=== PATIENT | male | born 1950 | race Caucasian/White ===

== ENCOUNTER 2020-09-12 13:01 | Emergency (ER) | payer MEDICARE, OTHER ==
--- OUTSIDE RECORDS SUMMARY | 2020-09-12 13:05 | XMS REPORT | Clinical Summary ---
:1950 Author Organization [facility] Address [address] [place] [address] Care Team Providers Name Role Phone Thomas Manrique MD Primary Care Provider Allergies Active Allergy Reactions Severity Noted Date Comments Iodine Shortness Of Breath High 08/27/2020 Penicillins Swelling 08/27/2020 And "passes out " Medications Medication Sig Dispensed Refills Start End Date Status Date levothyroxine Take 175 mcg 0 Act carmita (SYNTHROID) 175 mcg by mouth tablet daily. DULoxetine Take 60 mg by 0 Activ e (CYMBALTA) 60 MG mouth 2 (two) capsule times a day. Lactobac Take 1 0 Active no.41/Bifidobact capsule by no.7 (PROBIOTIC-10 mouth 2 (two) ORAL) times a day. vit A/vit C/vit Take by mouth 0 Active E/zinc/copper 2 (two) times (PRESERVISION AREDS a day. ORAL) gabapentin Take 2 60 capsule 0 09/19/20 Active (NEURONTIN) 100 mg capsules (200 0 20 capsule mg total) by mouth 3 (three) times a day for 10 days. psyllium husk Take 1 packet 30 packet 0 10/09/19 Ac tive (METAMUCIL) 6 gram by mouth 0 21 packet daily as needed (WATERY Ostomy output) for up to 30 days. Only take 1/4 - 1/2 of the glass sulfamethoxazole-tri Take 1 tablet 14 tablet 0 09/16 Active methoprim (BACTRIM by mouth 0 20 DS) 800-160 mg per every 12 tablet (twelve) hours for 7 days. atorvastatin Take 20 mg by 0 08/27/20 Dis continued (LIPITOR) 20 mg mouth daily. 20 tablet Default OP ins carbidopa-levodopa Take 1 tablet 0 0 Discontinued (SINEMET) 10-100 mg by mouth 3 20 per tablet (three) times a day. pramipexole di-HCl Take by mouth 0 0 Discontinued (MIRAPEX ORAL) 3 (three) 20 times a day. HYDROcodone-acetamin Take 1 tablet 0 08/27 Discontinued ophen (NORCO) 10-325 by mouth 20 mg per every 6 (six) tabletIndications: hours as acute pain needed for moderate pain .acute pain. bisoprolol (ZEBETA) Take 5 mg by 0 0 Discontinued 5 MG tablet mouth 2 (two) 20 times a day. gabapentin Take 300 mg 0 08/27/20 Discont inued (NEURONTIN) 300 mg by mouth 20 capsule nightly. diphenhydrAMINE Take 25 mg by 0 08/27/20 Discontinued (BENADRYL) 25 mg mouth nightly 20 tablet as needed for sleep. oxymetazoline 2 sprays into 0 08/27/20 Di scontinued (AFRIN) 0.05 % nasal each nostril 20 spray 2 (two) times a day. traZODone (DESYREL) Take 50 mg by 0 Discontinued 50 MG tablet mouth 20 nightly. UNABLE TO FIND Med Name: CBD 0 08/27/20 D iscontinued OIL 20 atorvastatin calcium Take 20 mg by 0 09/09 Discontinued (ATORVASTATIN ORAL) mouth every 20 (Stop Taking at evening. Discharge) Active Problems Problem Noted Date Incisional hernia without obstruction or gangrene 12/2019 Encounters Date Type Specialty Care Team Description 09/11/2020 Patient Outreach Quality Amalia Randle RN 09/10/2020 Travel 08/30/2020 Anesthesia Event General Surgery Trinity Meza MD Everitt, Amanda W., COMPRESSOR STATION CHIEF ENGINEER 08/30/2020 Surgery General Surgery Andi Gurrola OPEN RODNEYI JANENE Laura MD HERNIA REPAIR W ITH MESH, PARASTOMA L HERNIA REPAIR W ITH RELOCATION OF [facility] 08/30/2020 - Hospital Encounter General Surgery Andi Gurrola Inc isional hernia 09/09/2020 MD [place] without obstruc tion or gangrene 08/27/2020 Pre-Admission Pre-Admission Andi Gurrola Preop exam ination Testing Testing MD [place] (Primary Dx) 08/27/2020 Travel 08/19/2020 Travel 08/05/2020 Orders Only Cardiology Chris Mcrae MD 07/09/2020 Office Visit General Surgery Andi Gurrola Incisiona l hernia, without obstruction or gangrene (Primary Dx); MD [place] Parastomal tana ia without obstruction or gangrene 07/08/2020 Travel after 09/12/2019 Surgical History Surgery Date Site/Laterality Comments TOTAL COLECTOMY 03/27/2015 - ex-lap, total co lectomy, 04/26/2015 end ileostomy fo r acute abdomen HAND TENDON SURGERY right 1985 VARICOSE VEIN SURGERY 1978 REPAIR, HERNIA, 08/30/2020 Abdomen/N/A Procedure: OPEN INCISIONAL OR VENTRAL INCISIONAL HERNIA REPAIR WITH MESH, SONIA TOMAL HERNIA REPAIR WI TH [facility]ATION OF [facility]; Surgeon: Andi Baltazar MD; Locatio n: [facility] OR; Servic e: General; Latera lity: N/A; Medical devices from this surgery are in t he Implants section . Medical History Medical History Date Comments Hypertension htn is part of histo ry, not currently having high blood pr essure. 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 Depression Hyperlipidemia Hypothyroidism Anesthesia nhap/nfhap Prediabetes PVD (peripheral vascular disease) (HCC) Perforation of colon (HCC) [address] (HCC) Arthritis Lumbar herniated disc Social History Tobacco Use Types Packs/Day Years Used Date Current Every Day Smoker Cigarettes 0.5 50 Smokeless Tobacco: Never Used Alcohol Use Drinks/Week oz/Week Comments Not Currently Alcohol Habits Answer Date Recorded How often do you have a drink containing alcohol? Monthly or less 08/27/2020 How many drinks containing alcohol do you have on a 1 or 2 08/27/2020 typical day when you are drinking? How often do you have six or more drinks on one Not asked occasion? Sex Assigned at Date Recorded Not on file Job Start Date Occupation Industry Not on file Not on file Not on file COVID-19 Exposure Response Date Recorded In the last month, have you been in contact with No / Unsure 09/10/2020 9:42 AM [employer] someone who was confirmed or suspected to have Coronavirus / COVID-19? Last Filed Vital Signs Vital Sign Reading Time Taken Comments Blood Pressure 126/56 09/09/2020 12:09 PM [employer] Pulse 75 09/09/2020 12:09 PM [employer] Temperature 37.4 C (99.3 F) 09/09/2020 12:09 PM [employer] Respiratory Rate 20 09/09/2020 12:09 PM [employer] Oxygen Saturation 96% 09/09/2020 12:09 PM [employer] Inhaled Oxygen Concentration - - Weight 111 kg (244 lb 11.4 oz) 08/30/2020 8:22 PM [employer] Height 185.4 cm (6' 1") 08/30/2020 8:22 PM [employer] Body Mass Index 32.29 08/30/2020 8:22 PM [employer] Plan of Treatment Health Maintenance Due Date Last Done Comments COVID-19 VACCINE (#1) 1968 COLONOSCOPY SCREENING 2002 SHINGLES VACCINES (#1) 2002 65+ PNEUMOCOCCAL VACCINE (1 of 1 - PPSV23) 2017 INFLUENZA VACCINE 04/27/2020 Implants Implanted Type Area [employer] Device Shelf Model / Identifier Expiration Serial / Date Lot [employer] Mltpl Clip Ligaclip Ligtn 20 Clips 33.7cm Lg Ti - Lo [id number] Surgical N/A: N/A ETHICON US ET 04/26/2025 [id number] / Implanted: Qty: 1 on 08/30/2020 at [facility] Implants; / Expanders; [id number] Extenders; Surgical Wires Patch Hrnia Oval 7.7x9.7in Xl Ventrio Sepra - [id number] Surgica l Anterior: [employer] 11/24/2020 [id number] / Implanted: Qty: 1 on 08/30/2020 by Andi Gurrola MD at [facility] Mesh or Abdomen, / Tissue Middle [id number] Barrier Quadrant/No Products n Specific Procedures Procedure Name Priority Date/Time Associated Diagnosis Comme nts ESTIMATED GFR Routine 09/09/2020 4:00 Results fo r this AM [employer] procedure are i n the results section. PHOSPHORUS LEVEL Routine 09/09/2020 4:00 Results for this AM [employer] procedure are i n the results section. MAGNESIUM LEVEL Routine 09/09/2020 4:00 Results for this AM [employer] procedure are i n the results section. BASIC METABOLIC PANEL Routine 09/09/2020 4:00 Re sults for this AM [employer] procedure are i n the results section. HC COMPLETE BLD COUNT Routine 09/09/2020 3:50 Re sults for this W/AUTO DIFF AM [employer] procedure are i n the results section. HC COMPLETE BLD COUNT Routine 09/08/2020 5:20 Re sults for this W/AUTO DIFF AM [employer] procedure are i n the results section. ESTIMATED GFR Routine 09/08/2020 4:00 Results fo r this AM [employer] procedure are i n the results section. PHOSPHORUS LEVEL Routine 09/08/2020 4:00 Results for this AM [employer] procedure are i n the results section. MAGNESIUM LEVEL Routine 09/08/2020 4:00 Results for this AM [employer] procedure are i n the results section. BASIC METABOLIC PANEL Routine 09/08/2020 4:00 Re sults for this AM [employer] procedure are i n the results section. XR ABDOMEN 1 VW STAT 09/07/2020 1:21 Results for this PORTABLE PM [employer] procedure are i n the results section. HC COMPLETE BLD COUNT Routine 09/07/2020 5:00 Re sults for this W/AUTO DIFF AM [employer] procedure are i n the results section. ESTIMATED GFR Routine 09/07/2020 4:00 Results fo r this AM [employer] procedure are i n the results section. PHOSPHORUS LEVEL Routine 09/07/2020 4:00 Results for this AM [employer] procedure are i n the results section. MAGNESIUM LEVEL Routine 09/07/2020 4:00 Results for this AM [employer] procedure are i n the results section. BASIC METABOLIC PANEL Routine 09/07/2020 4:00 Re sults for this AM [employer] procedure are i n the results section. XR ABDOMEN 1 VW STAT 09/06/2020 12:04 Results for this PORTABLE PM [employer] procedure are i n the results section. HC COMPLETE BLD COUNT Routine 09/06/2020 4:30 Re sults for this W/AUTO DIFF AM [employer] procedure are i n the results section. ESTIMATED GFR Routine 09/06/2020 4:00 Results fo r this AM [employer] procedure are i n the results section. PHOSPHORUS LEVEL Routine 09/06/2020 4:00 Results for this AM [employer] procedure are i n the results section. MAGNESIUM LEVEL Routine 09/06/2020 4:00 Results for this AM [employer] procedure are i n the results section. BASIC METABOLIC PANEL Routine 09/06/2020 4:00 Re sults for this AM [employer] procedure are i n the results section. HC COMPLETE BLD COUNT Routine 09/05/2020 4:40 Re sults for this W/AUTO DIFF AM [employer] procedure are i n the results section. ESTIMATED GFR Routine 09/05/2020 4:00 Results fo r this AM [employer] procedure are i n the results section. PHOSPHORUS LEVEL Routine 09/05/2020 4:00 Results for this AM [employer] procedure are i n the results section. MAGNESIUM LEVEL Routine 09/05/2020 4:00 Results for this AM [employer] procedure are i n the results section. BASIC METABOLIC PANEL Routine 09/05/2020 4:00 Re sults for this AM [employer] procedure are i n the results section. CONSULT TO OSTOMY Routine 09/04/2020 2:22 CARE NURSE PM [employer] HC COMPLETE BLD COUNT Routine 09/04/2020 5:45 Re sults for this W/AUTO DIFF AM [employer] procedure are i n the results section. ESTIMATED GFR Routine 09/04/2020 4:00 Results fo r this AM [employer] procedure are i n the results section. PHOSPHORUS LEVEL Routine 09/04/2020 4:00 Results for this AM [employer] procedure are i n the results section. MAGNESIUM LEVEL Routine 09/04/2020 4:00 Results for this AM [employer] procedure are i n the results section. BASIC METABOLIC PANEL Routine 09/04/2020 4:00 Re sults for this AM [employer] procedure are i n the results section. PHOSPHORUS LEVEL Routine 09/03/2020 4:00 Results for this PM [employer] procedure are i n the results section. MAGNESIUM LEVEL Routine 09/03/2020 4:00 Results for this PM [employer] procedure are i n the results section. POTASSIUM LEVEL Routine 09/03/2020 4:00 Results for this PM [employer] procedure are i n the results section. ESTIMATED GFR Routine 09/03/2020 4:00 Results fo r this AM [employer] procedure are i n the results section. PHOSPHORUS LEVEL Routine 09/03/2020 4:00 Results for this AM [employer] procedure are i n the results section. MAGNESIUM LEVEL Routine 09/03/2020 4:00 Results for this AM [employer] procedure are i n the results section. BASIC METABOLIC PANEL Routine 09/03/2020 4:00 Re sults for this AM [employer] procedure are i n the results section. HEPATIC FUNCTION Routine 09/03/2020 4:00 Results for this PANEL AM [employer] procedure are i n the results section. HC COMPLETE BLD COUNT Routine 09/03/2020 3:00 Re sults for this W/AUTO DIFF AM [employer] procedure are i n the results section. SMEAR REVIEW Routine 09/02/2020 4:25 Results for this AM [employer] procedure are i n the results section. HC COMPLETE BLD COUNT Routine 09/02/2020 4:25 Re sults for this W/AUTO DIFF AM [employer] procedure are i n the results section. ESTIMATED GFR Routine 09/02/2020 4:00 Results fo r this AM [employer] procedure are i n the results section. FOLATE LEVEL Routine 09/02/2020 4:00 Results for this AM [employer] procedure are i n the results section. VITAMIN B12 LEVEL Routine 09/02/2020 4:00 Result s for this AM [employer] procedure are i n the results section. THYROID STIMULATING Routine 09/02/2020 4:00 Resu lts for this HORMONE AM [employer] procedure are i n the results section. PHOSPHORUS LEVEL Routine 09/02/2020 4:00 Results for this AM [employer] procedure are i n the results section. MAGNESIUM LEVEL Routine 09/02/2020 4:00 Results for this AM [employer] procedure are i n the results section. BASIC METABOLIC PANEL Routine 09/02/2020 4:00 Re sults for this AM [employer] procedure are i n the results section. XR ABDOMEN 1 VW STAT 09/01/2020 10:15 Results for this PORTABLE PM [employer] procedure are i n the results section. CBC HEMOGRAM STAT 09/01/2020 10:10 Results for this PM [employer] procedure are i n the results section. HC COMPLETE BLD COUNT Routine 09/01/2020 4:35 Re sults for this W/AUTO DIFF AM [employer] procedure are i n the results section. ESTIMATED GFR Routine 09/01/2020 4:00 Results fo r this AM [employer] procedure are i n the results section. PHOSPHORUS LEVEL Routine 09/01/2020 4:00 Results for this AM [employer] procedure are i n the results section. MAGNESIUM LEVEL Routine 09/01/2020 4:00 Results for this AM [employer] procedure are i n the results section. BASIC METABOLIC PANEL Routine 09/01/2020 4:00 Re sults for this AM [employer] procedure are i n the results section. CONSULT TO OSTOMY Routine 08/31/2020 10:20 CARE NURSE AM [employer] HC COMPLETE BLD COUNT Routine 08/31/2020 7:20 Re sults for this W/AUTO DIFF AM [employer] procedure are i n the results section. PHOSPHORUS LEVEL Routine 08/31/2020 7:16 Results for this AM [employer] procedure are i n the results section. MAGNESIUM LEVEL Routine 08/31/2020 7:16 Results for this AM [employer] procedure are i n the results section. ESTIMATED GFR Routine 08/31/2020 7:16 Results fo r this AM [employer] procedure are i n the results section. BASIC METABOLIC PANEL Routine 08/31/2020 7:16 Re sults for this AM [employer] procedure are i n the results section. CONSULT TO OSTOMY STAT 08/31/2020 7:11 CARE NURSE AM [employer] XR ABDOMEN 1 VW STAT 08/30/2020 5:46 Results for this PORTABLE PM [employer] procedure are i n the results section. SURGICAL PATHOLOGY Routine 08/30/2020 2:56 Resul ts for this REQUEST PM [employer] procedure are i n the results section. [place] AN ELECTIVE Routine 08/30/2020 2:37 Results f or this ENDOTRACHEAL AIRWAY PM [employer] procedur e are in the results section. ARTERIAL LINE Routine 08/30/2020 2:27 Results fo r this PM [employer] procedure are i n the results section. REPAIR, HERNIA, 08/30/2020 2:02 Incisional hernia INCISIONAL OR VENTRAL PM [employer] without obstruction or gangrene Case Notes MESH Special Needs MESH POC GLUCOSE Routine 08/30/2020 9:56 AM Results for this [employer] procedure are i n the results section. COVID-19 QUALITATIVE Routine 08/27/2020 6:22 PM Preop examina tion Results for this PCR [employer] procedure are i n the results section. ECG PRE/POST OP Routine 08/27/2020 6:11 PM Preop examination Results for this [employer] procedure are i n the results section. ECG PRE/POST OP Routine 08/27/2020 6:00 PM Preop examination Results for this [employer] procedure are i n the results section. ESTIMATED GFR Routine 08/27/2020 5:44 PM Results for this [employer] procedure are i n the results section. HC COMPLETE BLD COUNT Routine 08/27/2020 5:44 PM Preop examin ation Results for this W/AUTO DIFF [employer] procedure are i n the results section. COMPREHENSIVE Routine 08/27/2020 5:44 PM Preop examination Re sults for this METABOLIC PANEL [employer] procedure ar e in the results section. HEMOGLOBIN A1C Routine 08/27/2020 5:44 PM Preop examination R esults for this [employer] procedure are i n the results section. after 09/12/2019 Results Estimated GFR (09/09/2020 4:00 AM [employer])Only the most recent of11 resultswithin the time period is included. Estimated GFR 78 mL/min/1.73 [facility] Comment: m2 HOSPITAL Catergory Units Interpretation G1 >=90 Normal or high G2 60-89 Mildly decreased G3a 45-59 Mildly to moderately decreas ed G3b 30-44 Moderately to severely decre ased G4 15-29 Severely decreased G5 <15 Kidney failure The eGFR was calculated using the Chronic Kidney Disea se Epidemiology Collaboration (CKD-EPI) equation. Interpretation is based on recommendations of the National Kidney Foundation-Kidney Disease Outcomes Mango lity Initiative (NKF-KDOQI) published in 2014. Specimen Plasma Performing Organization Address [facility] Phon e Number [facility] DEPARTMENT OF PATHOLOGY AND [address] [place] [phone] Phosphorus level (09/09/2020 4:00 AM [employer])Only the most recent of11 results within the time period is included. Pathologist Sig nature Phosphorus 2.3 (L) 2.4 - 4.5 mg/dL [facility] Specimen Plasma Performing Organization Address [facility] Phon e Number [facility] DEPARTMENT OF PATHOLOGY AND [address] [place] [address] [address] Magnesium level (09/09/2020 4:00 AM [employer])Only the most recent of11 resultswithin the time period is included. Pathologist Sig nature Magnesium 2.0 1.6 - 2.4 mg/dL [facility] Specimen Plasma Performing Organization Address [facility] Phon e Number [facility] DEPARTMENT OF PATHOLOGY AND [address] [place] [address] [phone] [address] Basic metabolic panel (09/09/2020 4:00 AM [employer])Only the most recent of10 results within the time period is included. Pathologist Sig nature Sodium 138 135 - 148 mEq/L [facility] Potassium 4.0 3.5 - 5.0 mEq/L [facility] L Chloride 107 98 - 112 mEq/L [facility] CO2 23 (L) 24 - 31 mEq/L [facility] Anion gap 8@ANIO 7 - 15 mEq/L [facility] BUN 8 8 - 23 mg/dL [facility] Creatinine 0.99 0.70 - 1.20 mg/dL [facility] Glucose 121 (H) 65 - 99 mg/dL [facility] Calcium 8.4 (L) 8.8 - 10.2 mg/dL [facility] Specimen Plasma Performing Organization Address City/State/[facility] Code Phon e Number [facility] DEPARTMENT OF PATHOLOGY AND [address] [place], [place] [address] GENOMIC MEDICINE [facility] [address] [place] [address] CBC with platelet and differential (09/09/2020 3:50 AM [employer])Only the most recent of11 resultswithin the time period is included. WBC 4.58 4.50 - 11.00 [facility] k/uL [facility] RBC 4.08 (L) 4.40 - 6.00 [facility] m/[facility] HGB 11.5 (L) 14.0 - 18.0 [facility] g/dL [facility] HCT 35.8 (L) 41.0 - 51.0 % [facility] MCV 87.7 82.0 - 100.0 [facility] MCH 28.2 27.0 - 34.0 pg [facility] MCHC 32.1 31.0 - 37.0 [facility] g/[facility] RDW - SD 50.4 37.0 - 55.0 fL [facility] MPV 11.6 8.8 - 13.2 fL [facility] Platelet count 128 (L) 150 - 400 k/uL [facility] Nucleated RBC 0.00 /100 WBC [facility] Neutrophils 63.4 39.0 - 69.0 % [facility] Lymphocytes 17.0 (L) 25.0 - 45.0 % [facility] Monocytes 11.1 (H) 0.0 - 10.0 % [facility] Eosinophils 7.9 (H) 0.0 - 5.0 % [facility] Basophils 0.2 0.0 - 1.0 % [facility] Immature granulocytes 0.4Comment: 0.0 - 1.0 % [facility] "Immature HOSPITAL granulocytes" (promyelocytes , myelocytes, metamyelocytes ) Specimen Plasma Performing Organization Address City/[facility]/ZIP Code Phon e Number [facility] DEPARTMENT OF PATHOLOGY AND [address] [place] [address] [phone] [address] XR Abdomen 1 Vw Portable (09/07/2020 1:21 PM [employer])Only the most recent of4 resultswithin the time period is included. Specimen Narrative Performed At EXAMINATION: XR ABDOMEN 1 VW PORTABLE [facility] CLINICAL HISTORY: AV replace percutaneous planning aorta iliofemoral, r o SBO and ileus COMPARISON: Previous study from 2019 FINDINGS: Skin syeda projected over the abdomen and pelvis and surgical clips are present in the inguinal regions bilaterally. Drain age catheter is present in the right abdomen. The bowel gas pattern is abnormal, with distended loop s of small bowel present in the left lower abdomen. CT scan of the abdo men and pelvis could be of benefit for more complete ev aluation. IMPRESSION: Prominent small bowel loop in the left a bdomen. [id number] Procedure Note Hm Interface, Radiology Results Incoming - 09/07/2020 1:29 PM [employer] EXAMINATION: XR ABDOMEN 1 VW PORTABLE CLINICAL HISTORY: AV replace percutane ous planning aorta iliofemoral, r o SBO and ileus COMPARISON: Previous study from 020 FINDINGS: Skin syeda projected over the abdomen and pelvis and surgical clips are present in the inguinal regions bilaterally. Drainage catheter is present in the right abdomen. The bowel gas pattern is abnormal, with distended loops of small bowel present in the left lower abdomen. CT scan of the abdomen and pelvis could be of benefit for more complete evaluation. IMPRESSION: Prominent small bowel loop in the left a bdomen. [id number] Performing Organization Address City/[facility]/ZIP Code Phon e Number [facility] [address] [place] [address] Potassium level (09/03/2020 4:00 PM [employer]) Pathologist Cam garcia Potassium 3.5 3.5 - 5.0 mEq/L [facility] Specimen Plasma Performing Organization Address City/State/ZIP Code Phon e Number [facility] DEPARTMENT OF PATHOLOGY AND [address] [place], [place] [address] [facility] [address] [place] [phone] Hepatic function panel (09/03/2020 4:00 AM [employer]) Albumin 2.5 (L) 3.5 - 5.0 [facility] g/dL [facility] Total bilirubin 0.4 0.0 - 1.2 [facility] mg/dL [facility] Bilirubin direct <0.2 0.0 - 0.3 [facility] mg/dL [facility] Alkaline phosphatase 105 40 - 129 U/L [facility] Protein 6.3 6.3 - 8.3 [facility] Comment: g/dL HOSPITAL - 4.6-7.0 g/dL 1 week 4.4-7.6 g/dL 7 months-1year 5.1-7.3 g/dL 1-2 years 5.6-7.5 g/dL >3 years 6.0-8.0 g/dL 18-150 6.3-8.3 g/dL ALT 60 (H) 5 - 50 U/L [facility] AST 41 10 - 50 U/L [facility] Specimen Plasma Performing Organization Address City/[facility] Phon e Number [facility] DEPARTMENT OF PATHOLOGY AND [address] [place], [place] [address] [address] [address] Smear review (09/02/2020 4:25 AM [facility]) Pathologist Sig nature Platelet slide review Thuy slt decr [facility] Anisocytosis Moderate [facility] Ovalocytes Moderate [facility] Specimen Plasma Performing Organization Address [facility] Phon e Number [facility] DEPARTMENT OF PATHOLOGY AND [address] [place] [address] [phone] [address] Thyroid stimulating hormone (09/02/2020 4:00 AM [facility]) Pathologist Sig nature TSH 0.37 0.27 - 4.20 uIU/mL [facility] ITAL Specimen Plasma Performing Organization Address City/[facility] Phon e Number [facility] DEPARTMENT OF PATHOLOGY AND [address] [place] [address] [phone] [address] Folate level (09/02/2020 4:00 AM [facility]) Pathologist Sig nature Folate 15.3 4.8 - 24.2 ng/mL [facility] Specimen Serum Performing Organization Address City/[facility] Phon e Number [facility] DEPARTMENT OF PATHOLOGY AND [address] [place] [address] [phone] [address] Vitamin B12 level (09/02/2020 4:00 AM [facility]) Vitamin B12 492 211 - 946 [facility] Comment: pg/mL HOSPITAL Significant overlap exists between normal and deficien cy states. However, most patients with deficiencies will have Ser um B12 <200 pg/mL. Specimen Serum Performing Organization Address City/[facility] Phon e Number [facility] DEPARTMENT OF PATHOLOGY AND [address] [place] [address] [phone] [address] CBC hemogram (09/01/2020 10:10 PM [facility]) Pathologist Sig nature WBC 8.85 4.50 - 11.00 k/uL [facility] RBC 4.47 4.40 - 6.00 m/uL [facility] HGB 12.9 (L) 14.0 - 18.0 g/dL [facility] HCT 40.5 (L) 41.0 - 51.0 % [facility] MCV 90.6 82.0 - 100.0 fL [facility] MCH 28.9 27.0 - 34.0 pg [facility] MCHC 31.9 31.0 - 37.0 g/dL [facility] RDW - SD 53.9 37.0 - 55.0 fL [facility] MPV 11.1 8.8 - 13.2 fL [facility] Platelet count 128 (L) 150 - 400 k/uL [facility] Nucleated RBC 0.00 /100 WBC [facility] Specimen Plasma Performing Organization Address City/[facility] Phon e Number [facility] DEPARTMENT OF PATHOLOGY AND [address] [place] [address] [phone] [address] Surgical pathology request (08/30/2020 2:56 PM [facility]) [facility] DEPARTMENT OF PATHOLOGY AND GENOMIC MEDICINE Surgical pathology See link below [facility] DEPARTMENT OF report for PDF Lab PATHOLOGY AND Report GENOMIC MEDICINE Result status This is Final [facility] DEPARTMENT OF Report for PATHOLOGY AND [id number] GENOMIC MEDICINE Specimen Performing Organization Address City/State/ZIP Code Phon e Number [facility] DEPARTMENT OF PATHOLOGY AND [address] [place], [place] [address] 0 GENOMIC MEDICINE Airway (08/30/2020 2:37 PM [facility]) Narrative Performed At Monica Schwartz CRNA 0 2:37 PM Airway Date/Time: 08/30/2020 2:26 PM Performed by: Monica Schwartz CRNA Authorized by: Trinity Meza MD Location: OR Urgency: Elective Difficult Airway: No Performed by: resident/LIQUOR COMMISSIONER/AA Preoxygenated with 100% O2: Yes C-spine Precautions Maintained Throughou t: No Mask Ventilation: Not attempted Final Airway Type: Endotracheal airway Final Endotracheal Airway: ETT Cuffed: Yes Technique Used: Video laryngoscopy Devices/Methods Used in Placement: Int ubating stylet Insertion Site: Oral Blade Type: Lidya Laryngoscope Blade/Videolaryngoscope Prabhu de Size: 4 ETT Size (mm): 8.0 Cuff at minimum occlusion pressure: Yes Measured from: Gums ETT to Gums (cm): 23 Placement Verified by: CO2 detection, di rect visualization and equal breath sounds Laryngoscopic view: Grade I - full vie w of glottis Rapid Sequence Induction (RSI): No Modified RSI: Yes Number of Attempts at Approach: 1 Patient preoxygenated for 2 minutes on 100% FiO2. Eyes taped and protected after loss of eyelash reflex. DL x1 with GS#4 and ETT 8.0 visualized through cords. Placement verified via cuff palpation and tube secured in place. Easy and atraumatic intubation with all soft tissue and dentition intact per preop condition. Arterial line (08/30/2020 2:27 PM [facility]) Narrative Performed At Trinity Meza MD 08/30/2020 2:27 PM Arterial line Performed by: Trinity Meza MD Authorized by: Trinity Meza MD Patient Location: OR Staff: Performed by: Anesthesiologist Pre-procedure: patient identified, IV ch ecked, site and side verified, risks and benefits discussed, procedure verified, surgical consent complete, patient position confirmed, monitors and equ ipment checked and pre-op evaluation complete MSBT: antiseptic used, all elements of maximal sterile barrier technique followed, hand hygiene performed and cap /gown used by other personnel Indications: Indications: multiple ABGs and hemody namic monitoring Anesthesia: Anesthesia: General Procedure Details: Arterial Line placement: Placed pos t induction Line placement site: Radial Line placement side: Right Arterial line gauge: 20 G Number of attempts: 1 Post-procedure: Post-procedure: Sterile dressing applied POC glucose (08/30/2020 9:56 AM [facility]) Pathologist Sig nature POC glucose 124 (H) 65 - 99 mg/dL [facility] Comment: HOSPITAL Flat Sheet Maker Name: Shantell Reed Device ID: [id number] Chartable: No Action Needed Specimen Blood Performing Organization Address [facility] Phon e Number [facility] DEPARTMENT OF PATHOLOGY AND [address] [place] [address] COVID-19 qualitative PCR (08/27/2020 6:22 PM [facility]) Interpretation Negative results do not prec lude 2019-nCoV infection and should not be used as the sole basis for treatment or other patient management decisions. Negative results must be combined with clinical observations, patient history, and epidemiological GARCIA information. [facility] COVID-19 qualitative Not-Detected Not-Detecte [place] PCR result d [id number] qualitative See link below for [place] PCR PDF Lab [facility] ReportComment: Case HOSPITAL Number: [id number] Specimen Nasal swab Performing Organization Address [facility] Phon e Number [facility] DEPARTMENT OF PATHOLOGY AND [address] [place] [address] ECG Pre/Post Op (08/27/2020 6:11 PM [facility])Only the most recent of2 resultswithin the time period is included. Pathologist Sig nature Ventricular rate 86 [facility] Atrial rate 86 [facility] [place] interval 150 [facility] QRSD interval 74 [facility] QT interval 364 [facility] QTC interval 435 [facility] P axis 1 37 [facility] QRS axis 1 39 [facility] T wave axis 78 [facility] EKG impression Normal sinus rhythm [facility] with sinus arrhythmia-Electronical ly Signed By Diomedes Bradley MD ([id number]) on 08/28/2020 8:18:05 AM Specimen Narrative Performed At This result has an attachment that is no t available. Performing Organization Address City/State/ZIP Code Phon e Number [facility] MUSE [address] [place] [address] Hemoglobin A1c (08/27/2020 5:44 PM [facility]) Hemoglobin A1C 6.6 (H) 4.0 - 5.6 % [facility] Comment: HOSPITAL HbA1c cutoffs for diagnosing diabetes: 4.0% - 5.6% = normal 5.7% - 6.4% = increased risk for diabetes (prediabetes )9 >=6.5% = diabetes9 Goals for glycemic control (ADA 2016) < 7.0% Target for non adults with diabetes. More or less stringent targets may be appropriate for individual patients. <7.5% Target for Children and adolescents with type 1 diabetes. Specimen Blood Performing Organization Address City/[facility] Phon e Number [facility] DEPARTMENT OF PATHOLOGY AND [address] [place] [phone] GENOMIC MEDICINE [address] [address] Comprehensive metabolic panel (08/27/2020 5:44 PM [facility]) Sodium 141 135 - 148 [facility] mEq/L [facility] Potassium 4.3 3.5 - 5.0 [facility] mEq/L HOSPITAL Chloride 101 98 - 112 [facility] mEq/L HOSPITAL CO2 27 24 - 31 mEq/L [facility] Anion gap 13@ANIO 7 - 15 mEq/L [facility] BUN 13 8 - 23 mg/dL [facility] Creatinine 0.98 0.70 - 1.20 [facility] mg/dL HOSPITAL Glucose 101 (H) 65 - 99 mg/dL [facility] Calcium 10.2 8.8 - 10.2 [facility] mg/dL HOSPITAL Protein 7.4 6.3 - 8.3 [facility] Comment: g/dL [facility] [place] 4.6-7.0 g/dL 1 week 4.4-7.6 g/dL 7 months-1year 5.1-7.3 g/dL 1-2 years 5.6-7.5 g/dL >3 years 6.0-8.0 g/dL 18-150 6.3-8.3 g/dL Albumin 3.4 (L) 3.5 - 5.0 [facility] g/dL HOSPITAL A/G ratio 0.8 0.7 - 3.8 [facility] Alkaline phosphatase 179 (H) 40 - 129 U/L [facility] AST 103 (H) 10 - 50 U/L [facility] ALT 183 (H) 5 - 50 U/L [facility] Total bilirubin 0.4 0.0 - 1.2 [facility] mg/dL HOSPITAL Specimen Plasma Performing Organization Address City/State/ZIP Code Phon e Number [facility] DEPARTMENT OF PATHOLOGY AND [address] [place] [phone] GENOMIC MEDICINE [facility] [address] [place] [phone] after 09/12/2019 Advance Directives For more information, please contact: [phone] Type Date Recorded Patient Information Technology Coordinator Explanati on Advance Directives, Living Will and Medical Power of Pan Dumper
--- OUTSIDE RECORDS SUMMARY | 2020-09-12 13:06 | XMS REPORT | Continuity of Care Document ---
:[address] [facility] t Address [address] [place] [address] Care Team Providers Name Role Phone Thomas Manrique MD Primary Care Physician Razia MICHELLE Attending Clinician Unavailable Izabela HASKINS, R. Attending Clinician Susana HASKINS Attending Clinician Cheng Hough APRN Attending Clinician Thor HASKINS, S. Attending Clinician Doctor Unassigned, Name Attending Clinician Unavailable Haylie HASKINS, H Attending Clinician IZABELA Admitting Clinician Unavailable Payers Payer Name Policy Type Policy Effective Date Expiration Date Sour ce Number [facility] MEDICAREAARP [id number] 2020 [place] MEDICARE ADVANTAGE 00:00:00 Method ist PLAN HMO-POS (WELLMED)[id number] 2020-PresentH MO Problems Condition Condition Condition Status Onset Resolution Last Treating Co mments Source Name Details Category Date Date Treatment Clinician Date Incisional Incisional Disease Active 2019-09 [place] hernia hernia 2-04 Method[facility] without without 00:00: st obstructio obstructio 00 n or n or gangrene gangrene Elevated Elevated Diagnosis Active [facility] Allergies, Adverse Reactions, Alerts Allergy Allergy Status Severity Reaction(s) Onset Inactive Treating Comm ents Source Name Type Date Date Clinician Iodine Propensi Active Shortness Of 2019-09 [place] ty to Breath 10-28 Methodi adverse 00:00: st reaction 00 s to drug Penicill Propensi Active Swelling 2019-09 [place] ty to 10-28 "passes Methodi adverse 00:00: out" st reaction 00 s to drug Social History Social Habit Start Date Stop Date Quantity Comments Source History of tobacco Cigarette Smoker [place] use Yarsanism History [facility] Alcohol Binge Yarsanism Sex Assigned At [place] Yarsanism Exposure to Not sure [place] SARS-CoV-2 (event) Method ist Cigarettes smoked 2020-09-02 2020-09-02 [place] current (pack per 00:00:00 00:00:[address] day) - Reported Cigarette 2020-09-02 2020-09-02 [place] pack-years 00:00:00 00:00:00 Yarsanism Tobacco use and 2020-09-02 2020-09-02 Never used [place] exposure 00:00:00 00:00:00 Yarsanism Alcohol intake 2020-09-02 2020-09-02 Ex-drinker [place] 00:00:00 00:00:00 (finding) Yarsanism History [facility] 2020-08-27 2020-08-27 2 [place] Alcohol Frequency 00:00:00 00:00:[address] History [facility] 2020-08-27 2020-08-27 1 [place] Alcohol Std Drinks 00:00:00 00:00:00 Method ist Smoking Status Start Date Stop Date Source Current every day smoker 2020-09-02 00:00:00 Mukund kuo Yarsanism Medications Ordered Filled Start Stop Current Ordering Indication Dosage Frequency Signature Comments Components Source Medication Medication Date Date Medication? Clinician (SIG) Name Name atorvastati 2019-09 2020- No 20mg QD Take 20 mg [place] n calcium 2-14 12-14 by mouth Metho di (ATORVASTAT 13:22: 00:[address] IN ORAL) 57 :00 evening. levothyroxi 2019-09 Yes 175ug QD Take 175 [place] ne 2-14 mcg by Methodi (SYNTHROID) 13:22: mouth st 175 mcg 56 daily. tablet DULoxetine 2019-09 Yes 60mg Q.5D Take 60 mg [place] (CYMBALTA) 2-14 by mouth 2 Met hodi 60 MG 13:22: (two) st capsule 56 times a day. Lactobac 2019-09 Yes 1{capsu Q.5D Take 1 [place] no.[place]/Bifid 2-14 le} [facility] 13:[facility] mouth 2 st (PROBIOTIC- 56 (two) 10 ORAL) times a day. vit A/vit 2019-09 Yes Q.5D Take by Juan on C/vit -14 mouth 2 Methodi E/zinc/darrick 13:22: (two) st er 56 times a (PRESERVISI day. ON AREDS ORAL) psyllium 2019-09- Yes 1{packe Q24H Take 1 Mukund ston husk 11-10 t} packet by Methodrenae (METAMUCIL) 00:00: 23:[address] 6 gram 00 :00 daily as packet needed (WATERY Ostomy output) for up to 30 days. Only take 1/4 - 1/2 of the glass gabapentin 2019-09- Yes 200mg Q.40583034 Take 2 Patrick (NEURONTIN) 11-10 [id number] capsules Methodi 100 mg 00:00: 23:59 3D ([address] capsule 00 :00 total) by mouth 3 (three) times a day for 10 days. sulfamethox 2019-09- Yes 1{tbl} Q.5D Take 1 [place] azole-trime 11-10 tablet by Ar latasha thoprim 00:00: 23:[address] (BACTRIM 00 :00 every 12 DS) 800-160 (twelve) mg per hours for tablet 7 days. atorvastati 2019-09- No 20mg QD Take 20 mg Patrick n (LIPITOR) 10-28 by mouth Met ketan 20 mg 18:21: 00:[address] tablet 13 :00 Default OP ins carbidopa-l 2019-09 2020- No 1{tbl} Q.11105521 Take 1 Patrick evodopa 10-28 [id number] tablet by Cherry (SINEMET) 18:21: 00:[address] 10-100 mg 13 :00 (three) per tablet times a day. pramipexole 2019-09 2020- No Q.97308847 Take by Nguyen di-HCl 10-28 [id number] mouth 3 Met ketan (MIRAPEX 18:21: 00:00 3D (three) st ORAL) 13 :00 times a day. HYDROcodone 2019-09 acute pain 1{tbl} Q6H Take 1 [place] -acetaminop 10-28 tablet by Me thodi hen (NORCO) 18:21: 00:[address] 10-325 mg 13 :00 every 6 per tablet (six) hours as needed for moderate pain .acute pain. bisoprolol 2019-09 5mg Q.5D Take 5 mg [place] (ZEBETA) 5 10-28 by mouth 2 Me thodi MG tablet 18:21: 00:00 (two) st 13 :00 times a day. gabapentin 2019-09 300mg QD Take 300 [place] (NEURONTIN) 10-28 mg by Method i 300 mg 18:21: 00:[address] capsule 13 :00 nightly. diphenhydrA 2019-09 25mg QD Take 25 mg Nguyen MINE 10-28 by mouth Methodi (BENADRYL) 18:21: 00:[address] 25 mg 13 :00 needed for tablet sleep. oxymetazoli 2019-09 No 2{spray Q.5D 2 sprays [facility] (AFRIN) 10-28 } into each Met hodi 0.05 % 18:21: 00:[address] nasal spray 13 :00 (two) times a day. traZODone 2019-09 50mg QD Take 50 mg H ou[place] (DESYREL) 10-28 by mouth Metho di 50 MG 18:21: 00:[address] tablet 13 :00 UNABLE TO 2019-09- Med Name: Rogelio STERLING 10-28 CBD OIL Methodi 18:21: 00:00 st 13 :00 MetFORMIN MetFORMIN Yes Do [address] [facility] HCl ER HCl ER [place] [facility] Duloxetine Duloxetine Yes Do [address] [facility] HCl HCl [place] [facility] Atorvastati Atorvastati Yes Do [address] [facility] [facility] n Calcium n Calcium [place] [facility] Folic Acid Folic Acid Yes Do [address] [facility] [place] [facility] Levothyroxi Levothyroxi Yes Do [address] [facility] ne Sodium ne Sodium Alicia in the - morning on an empty l [facility] Vital Signs Vital Name Observation Time Observation Value Comments Source Systolic blood 2020-09-09 12:09:54 126 mm[Hg] [place] Yarsanism pressure Diastolic blood 2020-09-09 12:09:54 56 mm[Hg] Urielt on Yarsanism pressure Heart rate 2020-09-09 12:09:54 75 /min Patrick Pyle Body temperature 2020-09-09 12:09:54 37.39 Dena Uriel ton Yarsanism Respiratory rate 2020-09-09 12:09:54 20 /min Uriel lane Yarsanism Oxygen saturation in 2020-09-09 12:09:54 96 /min Patrick Pyle Arterial blood by Pulse oximetry Body height 2020-08-30 20:22:00 185.4 cm Patrick Pyle Body weight 2020-08-30 20:22:00 111 kg Patrick Pyle BMI 2020-08-30 20:22:00 32.29 kg/m2 Patrick Pyle Procedures Procedure Date / Time Performed Performing Clinician Sour e BASIC METABOLIC PANEL 2020-09-09 04:00:00 Makeda Sexton Yarsanism MAGNESIUM LEVEL 2020-09-09 04:00:00 Makeda Sexton Ar thodist PHOSPHORUS LEVEL 2020-09-09 04:00:00 Makeda Sexton ethodist ESTIMATED GFR 2020-09-09 04:00:00 Andi Gurrola ethodist HC COMPLETE BLD COUNT 2020-09-09 03:50:00 Makeda Sexton ton Yarsanism W/AUTO DIFF HC COMPLETE BLD COUNT 2020-09-08 05:20:00 Makeda Sexton ton Yarsanism W/AUTO DIFF BASIC METABOLIC PANEL 2020-09-08 04:00:00 Makeda Sexton ton Yarsanism MAGNESIUM LEVEL 2020-09-08 04:00:00 Makeda Sexton Me thodist PHOSPHORUS LEVEL 2020-09-08 04:00:00 Makeda Sexton ethodist ESTIMATED GFR 2020-09-08 04:00:00 Andi Gurrola ethodist XR ABDOMEN 1 VW PORTABLE 2020-09-07 13:21:14 Gely Monikam G [place] Yarsanism HC COMPLETE BLD COUNT 2020-09-07 05:00:00 Wilmer, Ángel rodrigez Yarsanism W/AUTO DIFF Pastoral BASIC METABOLIC PANEL 2020-09-07 04:00:00 WilmreÁngel Yarsanism Pastoral MAGNESIUM LEVEL 2020-09-07 04:00:00 WilmerÁngel rodgers Yarsanism Pastoral PHOSPHORUS LEVEL 2020-09-07 04:00:00 WilmerÁngel Yarsanism Pastoral ESTIMATED GFR 2020-09-07 04:00:00 Andi Gurrola ethodist XR ABDOMEN 1 VW PORTABLE 2020-09-06 12:04:34 Ondina Hong [place] Yarsanism HC COMPLETE BLD COUNT 2020-09-06 04:30:00 WilmerÁngel Yarsanism W/AUTO DIFF Pastoral BASIC METABOLIC PANEL 2020-09-06 04:00:00 Wilmer, Ángel rodrigez Yarsanism Pastoral MAGNESIUM LEVEL 2020-09-06 04:00:00 WilmerÁngel rodgers Yarsanism Pastoral PHOSPHORUS LEVEL 2020-09-06 04:00:00 WilmerÁngel n Yarsanism Pastoral ESTIMATED GFR 2020-09-06 04:00:00 Andi Gurrola ethodist HC COMPLETE BLD COUNT 2020-09-05 04:40:00 WilmerÁngel Yarsanism W/AUTO DIFF Pastoral BASIC METABOLIC PANEL 2020-09-05 04:00:00 WilmerÁngel Yarsanism Pastoral MAGNESIUM LEVEL 2020-09-05 04:00:00 WilmerÁngel Yarsanism Pastoral PHOSPHORUS LEVEL 2020-09-05 04:00:00 WilmerÁngel n Yarsanism Pastoral ESTIMATED GFR 2020-09-05 04:00:00 Andi Gurrola ethodist CONSULT TO OSTOMY CARE 2020-09-04 14:22:43 Koby Norton NURSE HC COMPLETE BLD COUNT 2020-09-04 05:45:00 Wilmer Ángel Pyle W/AUTO DIFF Pastoral BASIC METABOLIC PANEL 2020-09-04 04:00:00 Wilmer Ángel rodrigez Yarsanism Pastoral MAGNESIUM LEVEL 2020-09-04 04:00:00 WilmerÁngel Dg Nguyen Yarsanism Pastoral PHOSPHORUS LEVEL 2020-09-04 04:00:00 Ángel Guillen Yarsanism Pastoral ESTIMATED GFR 2020-09-04 04:00:00 Andi Gurrola ethodist POTASSIUM LEVEL 2020-09-03 16:00:00 Koby Norton Yarsanism MAGNESIUM LEVEL 2020-09-03 16:00:00 Koby Norton Yarsanism PHOSPHORUS LEVEL 2020-09-03 16:00:00 Koby Norton Yarsanism HEPATIC FUNCTION PANEL 2020-09-03 04:00:00 Shilo Tobar BASIC METABOLIC PANEL 2020-09-03 04:00:00 Wilmer Ángel rodrigez Yarsanism Pastoral MAGNESIUM LEVEL 2020-09-03 04:00:00 Wilmer Ángel Nguyen Yarsanism Pastoral PHOSPHORUS LEVEL 2020-09-03 04:00:00 Ángel Guillen Yarsanism Pastoral ESTIMATED GFR 2020-09-03 04:00:00 Shilo Tobar ethodist HC COMPLETE BLD COUNT 2020-09-03 03:00:00 Ángel Guillen W/AUTO DIFF Pastoral HC COMPLETE BLD COUNT 2020-09-02 04:25:00 Kishan Man W/AUTO DIFF SMEAR REVIEW 2020-09-02 04:25:00 Andi Gurrola ethodist BASIC METABOLIC PANEL 2020-09-02 04:00:00 Kishan Man Yarsanism MAGNESIUM LEVEL 2020-09-02 04:00:00 Kishan Man Yarsanism PHOSPHORUS LEVEL 2020-09-02 04:00:00 Kishan Man THYROID STIMULATING 2020-09-02 04:00:00 Shilo Tobar on Yarsanism HORMONE VITAMIN B12 LEVEL 2020-09-02 04:00:00 Shilo Tobar FOLATE LEVEL 2020-09-02 04:00:00 Shilo Tobar ethodist ESTIMATED GFR 2020-09-02 04:00:00 Andi Gurrola ethodist XR ABDOMEN 1 PORTABLE 2020-09-01 22:15:15 Biow Jordan Mukund Pyle CBC HEMOGRAM 2020-09-01 22:10:00 Jordan Otoole Meth odmarc HC COMPLETE BLD COUNT 2020-09-01 04:35:00 Kishan Man W/AUTO DIFF BASIC METABOLIC PANEL 2020-09-01 04:00:00 Kishan Man MAGNESIUM LEVEL 2020-09-01 04:00:00 Kishan Man PHOSPHORUS LEVEL 2020-09-01 04:00:00 Kishan Man ESTIMATED GFR 2020-09-01 04:00:00 Andi Gurrola CONSULT TO OSTOMY CARE 2020-08-31 10:20:01 Ángel Guillen NURSE Pastoral HC COMPLETE BLD COUNT 2020-08-31 07:20:00 Ángel Guillen W/AUTO DIFF Pastoral BASIC METABOLIC PANEL 2020-08-31 07:16:00 Ángel Guillen Pastoral ESTIMATED GFR 2020-08-31 07:16:00 Andi Gurrola ethodist MAGNESIUM LEVEL 2020-08-31 07:16:00 Andi Gurrola ethodist PHOSPHORUS LEVEL 2020-08-31 07:16:00 Andi Gurrola CONSULT TO OSTOMY CARE 2020-08-31 07:11:34 Ondina Hong NURSE XR ABDOMEN 1 PORTABLE 2020-08-30 17:46:00 Andi Gurrola SURGICAL PATHOLOGY 2020-08-30 14:56:00 Andi Gurrola REQUEST [place] AN ELECTIVE 2020-08-30 14:37:07 Monica Schwartz ENDOTRACHEAL AIRWAY ARTERIAL LINE 2020-08-30 14:27:24 Trinity Meza Meth odist REPAIR, HERNIA, 2020-08-30 14:02:00 Andi Gurrola ethyunior INCISIONAL OR VENTRAL POC GLUCOSE 2020-08-30 09:56:00 Andi Gurrola ethodist COVID-19 QUALITATIVE PCR 2020-08-27 18:22:00 Andi Gurrola ECG PRE/POST OP 2020-08-27 18:11:33 Marivel Hough ethodist ECG PRE/POST OP 2020-08-27 18:00:03 Marivel Hough HEMOGLOBIN A1C 2020-08-27 17:44:00 Marivel Hough COMPREHENSIVE METABOLIC 2020-08-27 17:44:00 Marivel Hough PANEL HC COMPLETE BLD COUNT 2020-08-27 17:44:00 Marivel Hough W/AUTO DIFF ESTIMATED GFR 2020-08-27 17:44:00 Marivel Hough Plan of Care Planned Activity Planned Date Details Comments Source Future Scheduled 2020-04-27 INFLUENZA VACCINE Leland graham Yarsanism Test 00:00:00 [code = INFLUENZA VACCINE] Future Scheduled 2017 65+ PNEUMOCOCCAL Patrick Yarsanism Test 00:00:00 VACCINE (1 of 1 - PPSV23) [code = 65+ PNEUMOCOCCAL VACCINE (1 of 1 - PPSV23)] Future Scheduled 2002 COLONOSCOPY SCREENING Rogelio del real Yarsanism Test 00:00:00 [code = COLONOSCOPY SCREENING] Future Scheduled 2002 SHINGLES VACCINES (#1) Radha rodrigez Yarsanism Test 00:00:00 [code = SHINGLES VACCINES (#1)] Future Scheduled 1968 COVID-19 VACCINE (#1) Rogelio Pyle Test 00:00:00 [code = COVID-19 VACCINE (#1)] Encounters Start End Encounter Admission Attending Care Care Encounter Source Date/Time Date/Time Type Type Clinicians Facility Department ID 2020-08-30 2020-09-09 Inpatient [facility]ELA [facility] [id number] [place] 00:00:00 00:00:00 ANDI [address] 2020-08-27 2020-08-27 Outpatient IZABELA [facility] [id number] [place] 00:00:00 00:00:00 ANDI [address] 2020-07-09 2020-07-09 Outpatient IZABELA [facility] [id number] [place] 00:00:00 00:00:00 ANDI [address] 2020-02-08 2020-02-08 Orders Doctor NADEEM [id number] 00:00:00 00:00:00 Only Unassigned, [id number] [id number] [id number] 2020-02-01 2020-02-01 [place] Haylie MOSTEVEN [id number] 00:00:00 00:00:00 Gavino Nunes [id number] [place] [id number] [facility] [id number] [address] 2019-12-27 2019-12-27 [facility] [id number] [address] 08:00:00 08:00:00 t Specialty/U Susana kes - Specialty rology Memori a /Urology Clinic l Clinic Outpati ent Clinics 2019-10-24 2019-10-24 Orders Doctor NADEEM [id number] 00:00:00 00:00:00 Only Unassigned, ALEK [id number] [facility] [id number] 2019-09-08 2019-09-08 [facility] [id number] 14:00:00 14:00:00 t Specialty/U Susana kes - Specialty rology Memori a /Urology Clinic l Clinic Outpati ent Clinics 2019-08-25 2019-08-25 [facility] [id number] 11:33:00 11:33:00 t Specialty/U Susana kes - Specialty rology Memori a /Urology Clinic l Clinic Outpati ent Clinics 2019-08-07 2019-08-07 [facility] [id number] 09:00:00 09:00:00 t Specialty/U Susana batista - Specialty rology Memori a /Urology Clinic l Clinic Outpati ent Clinics Results Test Description Test Time Test Comments Results Result Comments Source Basic metabolic panel 2020-09-09 05:21:17 Test Item Value Reference Range Interpretation Comme nts Sodium (test code = 2951-2) 138 135- 148 mEq/L Potassium (test code = 2823-3) 4.0 3.5- 5.0 mEq/L Chloride (test code = 2075-0) 107 98- 112 mEq/L CO2 (test code = 2027-9) 23 24- 31 mEq/L L Anion gap (test code = 38205-9) 8@ANIO 7- 15 mEq/L BUN (test code = 3094-0) 8 mg/dL 8-23 Creatinine (test code = 2160-0) 0.99 mg/dL 0.7-1.2 Glucose (test code = 2345-7) 121 mg/dL 65-99 H Calcium (test code = 34851-6) 8.4 mg/dL 8.8-10.2 L Lab Interpretation (test code = 83243-7) Abnormal [place] MethodistMagnesium [id number] 05:21:16 Test Item Value Reference Range Interpretation Comments Magnesium (test code = 74648-8) 2.0 mg/dL 1.6-2.4 [place] MethodistPhosphorus [id number] 05:21:16 Test Item Value Reference Range Interpretation Comments Phosphorus (test code = 2777-1) 2.3 mg/dL 2.4-4.5 L Lab Interpretation (test code = Abnormal 13984-4) [place] MethodistEstimated [id number] 05:21:16 Test Item Value Reference Range Interpretation Comments Estimated GFR (test 78 mL/min/1.73 m2 [facility] code = 5488) InterpretationG 1 >=90 Normal or highG2 60-89 Mildly otfmydzetZ5j 45-59 Mildly to mode rately zvxsdblvbU5h 30-44 Moderately to severely decreasedG4 15-29 Severely decre asedG5 <15 Kidn ey failureThe eGFR was calculated arabella hernandez the Chronic Kidney Disease Epidemiology Co llaboration (CKD-EPI) equat ion. Interpretation is based on recommendations of the National Kidney Foundation-Kidn ey Disease Outcomes Qualit y Initiative (FORMERLY [facility]-KDOQI) pub lished in 2013. Nguyen MethodistCBC with platelet and [id number] 04:30:01 Test Item Value Reference Range Interpretation Comments WBC (test code = 14421-5) 4.58 4.50- 11.00 k/uL RBC (test code = 26900-1) 4.08 m/uL 4.4-6 L HGB (test code = 718-7) 11.5 g/dL 14-18 L HCT (test code = 4544-3) 35.8 % 41-51 L MCV (test code = 787-2) 87.7 fL 82-100 MCH (test code = 785-6) 28.2 pg 27-34 MCHC (test code = 786-4) 32.1 g/dL 31-37 RDW - SD (test code = 50.4 fL 37-55 71813-3) MPV (test code = 75809-2) 11.6 fL 8.8-13.2 Platelet count (test code 128 150- 400 k/uL L = 28716-9) Nucleated RBC (test code 0.00 /100 WBC = 12828-1) Neutrophils (test code = 63.4 % 39-69 23884-7) Lymphocytes (test code = 17.0 % 25-45 L 26316-1) Monocytes (test code = 11.1 % 0-10 H 64950-7) Eosinophils (test code = 7.9 % 0-5 H 29805-0) Basophils (test code = 0.2 % 0-1 89472-6) Immature granulocytes 0.4 % 0-1 "Immat ure (test code = 85971-3) granul ocytes" (promyelocytes, myelocytes, metamyelocytes) Lab Interpretation (test Abnormal code = 34150-6) Nguyen MethodistXR Abdomen 1 Vw [id number] 13:26:11Hm Interface, Radiology Results - 09/07/2020 1:29 PM CSTEXAMINATION: XR ABDOMEN 1 VW PORTABLECLINICAL HISTORY: AV replace percutaneous planning aorta iliofemoral, r o SBO and ileusCOMPARISON: Previous study from 09/06/2020FINDINGS:Skin syeda projected over the abdomen and pelvis and camacho rgical clips are present in the inguinal regions bilaterally. Drainage catheter is present in the right abdomen.The bowel gas pattern is abnormal, with distended loops of small bowel present in the left lower abdomen. CT scan of the abdomen and pelvis could be of benefit for more complete evaluation.IM PRESSION:Prominent small bowel loop in the left abdomen.[id number] MethodistS[facility] pathology [id number] 16:54:00 Test Item Value Reference Range Interpretation Comments Case number (test code = [id number]) Surgical pathology See link below for report (test code = PDF Lab Report [id number]) Result status (test code This is Final Report = [id number]) for [id number] [facility] [id number] 19:06:38 Test Item Value Reference Range Interpretation Comments Potassium (test code = 2823-3) 3.5 3.5- 5.0 mEq/L [facility] CampusHepatic function [id number] 04:34:07 Test Item Value Reference Range Interpretation Comments Albumin (test code = 2.5 g/dL 3.5-5 L 1-7) Total bilirubin (test 0.4 mg/dL 0-1.2 code = 1974-2) Bilirubin direct (test <0.2 0-0.3 code = 1967-7) Alkaline phosphatase 105 U/L 40-129 (test code = 6768-6) Protein (test code = 6.3 g/dL 6.3-8.3 -[place] n 2885-2) 4.6-7.0 g /dL1 week 4.4-7.6 g/dL 7 months-1year 5.1-7.3 g/dL 1-2 years 5.6-7.5 g/dL>3 years 6.0-8.0 g/tS28-886 6.3-8. 3 g/dL ALT (test code = 1742-6) 60 U/L 5-50 H AST (test code = 1920-8) 41 U/L 10-50 Lab Interpretation (test Abnormal code = 40152-1) [facility], TxistSmear [id number] 07:28:34 Test Item Value Reference Range Interpretation Comments Platelet slide review (test code Thuy slt decr = 86965-6) Anisocytosis (test code = 702-1) Moderate Ovalocytes (test code = 774-0) Moderate [facility] CampusVitamin B12 [id number] 06:31:34 Test Item Value Reference Range Interpretation Comments Vitamin B12 (test 492 pg/mL 211-946 Significan t overlap code = 2132-9) exists betwee n normal and deficiency states.However, most patients with deficiencies wi ll have Serum B12 <2 00 pg/mL. [facility] CampusFolate [id number] 06:31:34 Test Item Value Reference Range Interpretation Comments Folate (test code = 2284-8) 15.3 ng/mL 4.8-24.2 [facility] CampusThyroid stimulating [id number] 06:22:53 Test Item Value Reference Range Interpretation Comments TSH (test code = 3016-3) 0.37 0.27- 4.20 uIU/mL [facility] CampusCBC [id number] 23:30:35 Test Item Value Reference Range Interpretation Comments WBC (test code = 74743-8) 8.85 4.50- 11.00 k/uL RBC (test code = 51415-3) 4.47 m/uL 4.4-6 HGB (test code = 718-7) 12.9 g/dL 14-18 L HCT (test code = 4544-3) 40.5 % 41-51 L MCV (test code = 787-2) 90.6 fL 82-100 MCH (test code = 785-6) 28.9 pg 27-34 MCHC (test code = 786-4) 31.9 g/dL 31-37 RDW - SD (test code = 66425-7) 53.9 fL 37-55 MPV (test code = 97549-2) 11.1 fL 8.8-13.2 Platelet count (test code = 128 150- 400 k/uL L 92873-9) Nucleated RBC (test code = 0.00 /100 WBC 70134-0) Lab Interpretation (test code = Abnormal 45667-1) [place] [id number] 14:37:07Monica Schwartz CRNA 08/30/2020 2:37 PMAirway Date/Time: 08/30/2020 2:26 PMPerformed by: Monica Schwartz CRNAAuthorized by: Trinity Meza MD Location: ORUrgency: ElectiveDifficult Airway:No Performed by: resident/AIR HOIST OPERATOR/AAPreoxygenated with 100% O2: Yes C-spine Precautions MaintainedThroughout: No Mask Ventilation: Not attemptedFinal Airway Type: Endotracheal airwayFinal Endotracheal Airway: ETTCuffed: Yes Technique Used: Video laryngoscopyDevices/Methods Used in Placement:Intubating styletInsertion Site: OralBlade Type: MacintoshLaryngoscope Blade/Videolaryngoscope Blade Size: 4ETT Size (mm): 8.0Cuff at minimum occlusion pressure: Yes Measured from: GumsETT to Gums (cm): 23Placement Verified by: CO2 detection, direct visualization and equal breath sounds Laryngoscopic view: Grade I - full view of glottisRapid Sequence Induction (RSI): No Modified RSI: Yes Number of Attempts at Approach: 1 Patient preoxygenated for 2 minutes on 100% FiO2. Eyes taped and protected after loss of eyelash reflex. DL x1 with GS#4 and ETT 8.0 visualized through cords. Placementverified via cuff palpation and tube secured in place. Easy and atraumatic intubation with all soft tissue and dentition intact per preop condition.[place] MethodistArterial [id number] 14:27:24Trinity Meza MD 08/30/2020 2:27 PMArterial linePerformed by: Trinity Meza MDAuthorized by: Trinity Meza MD Patient Location: ORStaff: Performed by: AnesthesiologistPre- procedure: patient identified, IV checked, site and side verified, risks and benefits discussed, procedure verified, surgical consent complete, patient position confirmed, monitors and equipment checked and pre-op evaluation compl ete MSBT: antiseptic used, all elements of maximal sterile barrier technique followed, hand hygieneperformed and cap/gown used by other personnel Indications: Indications: multiple ABGs and hemodynamic monitoring Anesthesia: Anesthesia: GeneralProcedure Details: Arterial Line placement: Placed post induction Line placement site: RadialLine placement side: Right Arterial line gauge: 20 GNumber of attempts: 1Post-procedure: Post- procedure: Sterile dressing appliedH[facility] [id number] 09:57:33 Test Item Value Reference Range Interpretation Comments POC glucose (test code = 124 mg/dL 65-99 H Ope rator Name: [id number]) Shantell Walton MDevice ID: [id number] able : No Action Nee ded Lab Interpretation (test Abnormal code = 79247-8) Patrick PyleECG Pre/Post [id number] 08:18:07 Test Item Value Reference Range Interpretation Comments Ventricular rate (test 86 code = 253) Atrial rate (test code = 86 255) WV interval (test code = 150 266) QRSD interval (test code 74 = 260) QT interval (test code = 364 264) QTC interval (test code = 435 265) P axis 1 (test code = 37 267) QRS axis 1 (test code = 39 268) T wave axis (test code = 78 270) EKG impression (test code Normal sinus rhythm = 273) with sinus arrhythmia-Electroni spike Signed By Diomedes Bradley MD ([id number]) on 08/28/2020 8:18:05 AM Patrick GuerreroistCOVID-19 qualitative [id number] 08:17:25 Test Item Value Reference Range Interpretation Comments Interpretation (test Negative results do code = 6341311) not preclude 2019-nCoV infection and should not be used as the sole basis for treatment or other patient management decisions. Negative results must be combined with clinical observations, patient history, and epidemiological information. COVID-19 qualitative Not-Detected Not-Detected PCR result (test code = 32950-8) COVID-19 qualitative See link below for C ase Number: PCR (test code = PDF Lab Report [id number]) Patrick PyleHemoglobin [id number] 20:17:31 Test Item Value Reference Range Interpretation Comments Hemoglobin A1C (test 6.6 % 4-5.6 H HbA1c c utoffs for code = 73570-3) diagnosing diabetes:4.0% - 5.6% = normal5.7% - 6.4% = increased risk for diabetes (prediabetes)9> =6.5% = [id number] s for glycemic contro l (ADA 2016)< 7.0% Ta rget for non adults with joseph betes. More or less stringent targe ts may be appropriate for individual harvey ents. <7.5% Target for Children and adolescents wit h type 1 diabetes. Lab Interpretation (test Abnormal code = 11190-9) Patrick PyleComprehensive metabolic [id number] 20:11:07 Test Item Value Reference Range Interpretation Comments Sodium (test code = 141 135- 148 mEq/L 2951-2) Potassium (test code = 4.3 3.5- 5.0 mEq/L 2823-3) Chloride (test code = 101 98- 112 mEq/L 2075-0) CO2 (test code = 2027-9) 27 24- 31 mEq/L Anion gap (test code = 13@ANIO 7- 15 mEq/L 49496-7) BUN (test code = 3094-0) 13 mg/dL 8-23 Creatinine (test code = 0.98 mg/dL 0.7-1.2 2160-0) Glucose (test code = 101 mg/dL 65-99 H 2345-7) Calcium (test code = 10.2 mg/dL 8.8-10.2 04599-7) Protein (test code = 7.4 g/dL 6.3-8.3 -[place] n 2885-2) 4.6-7.0 g/dL1 week 4.4-7 .6 g/dL7 months-1y ear 5.1-7 .3 g/dL1-2 years 5.6-7 .5 g/dL>3 years 6.0-8 .0 g/xX79-781 6.3-8 .3 g/dL Albumin (test code = 3.4 g/dL 3.5-5 L 1751-7) A/G ratio (test code = 0.8 0.7-3.8 1759-0) Alkaline phosphatase 179 U/L 40-129 H (test code = 6768-6) AST (test code = 1920-8) 103 U/L 10-50 H ALT (test code = 1742-6) 183 U/L 5-50 H Total bilirubin (test 0.4 mg/dL 0-1.2 code = 1974-2) Lab Interpretation (test Abnormal code = 42334-6) Patrick Pyle
[2020-09-12] MEDS ORDERED: HYDROCODONE/APAP 10/325 TAB ONE (16:26)
--- NOTE | 2020-09-12 17:56 | EDPHYS ---
Physician Documentation [facility] [place] Name: Harshil Perales Age: 70 yrs Sex: Male : 1950 Arrival Date: 09/12/2020 Time: 13:03 Bed 8 Private MD: ED Physician Gavino Ann HPI: 09/12 16:09 This 70 yrs old Male presents to ER via Wheelchair with complaints of Wound jmm Check. 16:09 Patient presents to ED for recheck of: wound vac. The affected area is on the abdomen. jmm This is a 70 year old male s/p colostomy surgery that presents to the ED with complaints of ineffective wound vac. Advised to go to the ED for further evaluation. . Historical: - Allergies: 13:44 PENICILLINS; aa5 13:44 Iodine; aa5 13:44 Iodinated Contrast Media - IV Dye; aa5 - PMHx: 13:44 Hypothyroidism; Hyperlipidemia; Herniated disc; aa5 - PSHx: 13:42 R hand sx; Hernia repair; vein stripped BLE; aa5 - Immunization history:: Adult Immunizations unknown. - Social history:: Smoking status: Patient denies any tobacco usage or history of. ROS: 16:09 Constitutional: Negative for fever, chills, and weight loss, Cardiovascular: Negative jmm for chest pain, palpitations, and edema, Respiratory: Negative for shortness of breath, cough, wheezing, and pleuritic chest pain. 16:09 Abdomen/GI: Positive for abdominal pain. 16:09 All other systems are negative. Exam: 16:09 Constitutional: This is a well developed, well nourished patient who is awake, alert, jmm and in no acute distress. Head/Face: atraumatic. Eyes: EOMI, no conjunctival erythema appreciated ENT: Moist Mucus Membranes Neck: Trachea midline, Supple Chest/axilla: Normal chest wall appearance and motion. Cardiovascular: Regular rate and rhythm. No edema appreciated Respiratory: Normal respirations, no respiratory distress appreciated 16:09 Back: Normal ROM Skin: General appearance color normal MS/ Extremity: Moves all extremities, no obvious deformities appreciated, no edema noted to the lower extremities Neuro: Awake and alert, normal gait Psych: Behavior is normal, Mood is normal, Patient is cooperative and pleasant 16:09 Abdomen/GI: Vital Signs: 13:41 BP 125 / 86; Pulse 102; Resp 18 S; Temp 98.4(O); Pulse Ox 97% on R/A; Weight 111.13 kg aa5 (R); Height 6 ft. 1 in. (185.42 cm) (R); Pain 1/10; 15:00 BP 129 / 60; Pulse 90; Resp 16; Pulse Ox 98% ; bp 16:00 BP 120 / 56; Pulse 64; Resp 17; Pulse Ox 98% ; bp 17:30 BP 124 / 76; Pulse 67; Resp 17; Pulse Ox 97% ; bp 13:41 Body Mass Index 32.32 (111.13 kg, 185.42 cm) aa5 MDM: 16:08 Patient medically screened. leslye 17:54 Data reviewed: vital signs, nurses notes. Counseling: I had a detailed discussion with leslye the patient and/or guardian regarding: the historical points, exam findings, and any diagnostic results supporting the discharge/admit diagnosis, the need for outpatient follow up, to return to the emergency department if symptoms worsen or persist or if there are any questions or concerns that arise at home. Administered Medications: 16:17 Drug: [place] 10 mg-325 mg 1 tabs Route: PO; rb3 17:00 Follow up: Response: No adverse reaction; Pain is decreased rb3 Disposition: 09/13 07:52 Co-signature as Attending Physician, Gavino Ann MD I agree with the assessment and kdr plan of care. Disposition: 09/12/20 17:55 Discharged to Home. Impression: Encounter for change or removal of surgical wound dressing. - Condition is Stable. - Discharge Instructions: Negative Pressure Wound Therapy Dressing Care. - Medication Reconciliation Form, Thank You Letter, Antibiotic Education, Prescription Opioid Use form. - Follow up: Private Physician; When: 2 - 3 days; Reason: Recheck today's complaints, Continuance of care, Re-evaluation by your physician. Signatures: Gavino Ann MD MD kdr Mickail, Joel, PA PA jmm Calderon, Audri, RN RN aa5 Makeda Fagan, RN RN rb3 Corrections: (The following items were deleted from the chart) 09/12 18:09 17:55 09/12/2020 17:55 Discharged to Home. Impression: Encounter for change or removal rb3 of surgical wound dressing. Condition is Stable. Forms are Medication Reconciliation Form, Thank You Letter, Antibiotic Education, Prescription Opioid Use. Follow up: Private Physician; When: 2 - 3 days; Reason: Recheck today's complaints, Continuance of care, Re-evaluation by your physician. leslye
--- NOTE | 2020-09-12 17:56 | ER ---
Nurse's Notes [facility] Name: Harshil Perales Age: 70 yrs Sex: Male : 1950 Arrival Date: 09/12/2020 Time: 13:03 Bed 8 Private MD: Diagnosis: Encounter for change or removal of surgical wound dressing Presentation: 09/12 13:40 Chief complaint: Patient states: "I had hernia surgery on the 4th at [facility] and last aa5 night the vacuum drainage (Woundvac) came out and now my colostomy bag is filling up and I emptied it just before coming here and now it's full again". Pt states "My doctor told me to come here because my home health wouldn't been able to fix it". Colostomy bag emptied in triage. Coronavirus screen: Client denies travel out of the [place] in the last 14 days. At this time, the client does not indicate any symptoms associated with coronavirus-19. Ebola Screen: Patient negative for fever greater than or equal to 101.5 degrees Fahrenheit, and additional compatible Ebola Virus Disease symptoms. Initial Sepsis Screen: Does the patient meet any 2 criteria? No. Patient's initial sepsis screen is negative. Does the patient have a suspected source of infection? No. Patient's initial sepsis screen is negative. Risk Assessment: Do you want to hurt yourself or someone else? Patient reports no desire to harm self or others. Onset of symptoms was September 12, 2020. 13:40 Acuity: BYRON 3 aa5 13:40 Method Of Arrival: Wheelchair aa5 Historical: - Allergies: 13:44 PENICILLINS; aa5 13:44 Iodine; aa5 13:44 Iodinated Contrast Media - IV Dye; aa5 - PMHx: 13:44 Hypothyroidism; Hyperlipidemia; Herniated disc; aa5 - PSHx: 13:42 R hand sx; Hernia repair; vein stripped BLE; aa5 - Immunization history:: Adult Immunizations unknown. - Social history:: Smoking status: Patient denies any tobacco usage or history of. Screenin:25 Abuse screen: Denies threats or abuse. Nutritional screening: No deficits noted. rb3 Tuberculosis screening: No symptoms or risk factors identified. Fall Risk None identified. Assessment: 15:25 General: Appears uncomfortable, Behavior is calm, cooperative, Denies fever. Pain: rb3 Complains of pain in abdomen. Neuro: Level of Consciousness is awake, alert, obeys commands, Oriented to person, place, time, situation. Respiratory: Airway is patent Respiratory effort is even, unlabored, Respiratory pattern is regular, symmetrical. GI: Reports Has a wound on his abdomen that had a wound vac placed after a hernia repair. Reports that his colostomy bag fills up quickly. : No signs and/or symptoms were reported regarding the genitourinary system. Derm: Wound noted abdomen. 16:05 Reassessment: Wound care was contacted to see if someone could come and look at the rb3 wound per Mickail's request. I spoke with Daly in wound care. She will talk to someone and see if they have somebody available to come to ED to assess the pt. 17:00 Reassessment: Patient appears in no apparent distress at this time. Patient and/or rb3 family updated on plan of care and expected duration. Pain level reassessed. Patient is alert, oriented x 3, equal unlabored respirations, skin warm/dry/pink. 17:11 Reassessment: Wound care is at the pt. bedside. rb3 18:04 Reassessment: Patient appears in no apparent distress at this time. No changes from rb3 previously documented assessment. Joe performed wound care, pt. tolerated well. Vital Signs: 13:41 BP 125 / 86; Pulse 102; Resp 18 S; Temp 98.4(O); Pulse Ox 97% on R/A; Weight 111.13 kg aa5 (R); Height 6 ft. 1 in. (185.42 cm) (R); Pain 1/10; 15:00 BP 129 / 60; Pulse 90; Resp 16; Pulse Ox 98% ; bp 16:00 BP 120 / 56; Pulse 64; Resp 17; Pulse Ox 98% ; bp 17:30 BP 124 / 76; Pulse 67; Resp 17; Pulse Ox 97% ; bp 13:41 Body Mass Index 32.32 (111.13 kg, 185.42 cm) aa5 ED Course: 13:03 Patient arrived in ED. ag5 13:40 Arm band placed on. aa5 13:42 Triage completed. aa5 15:20 Nichole Ruiz FNP-C is PHCP. snw 15:21 Makeda Fagan, RN is Primary Nurse. rb3 15:23 Nichole Ruiz FNP-C is PHCP. snw 15:25 Patient has correct armband on for positive identification. Bed in low position. Call rb3 light in reach. Side rails up X 1. Pulse ox on. NIBP on. 15:56 Osmin Masters PA is PHCP. [facility] 15:56 Gavino Ann MD is Attending Physician. [facility] 17:10 Makeda Fagan, RN is Primary Nurse. rb3 18:08 No provider procedures requiring assistance completed. Patient did not have IV access rb3 during this emergency room visit. Administered Medications: 16:17 Drug: [place] 10 mg-325 mg 1 tabs Route: PO; rb3 17:00 Follow up: Response: No adverse reaction; Pain is decreased rb3 Outcome: 17:55 Discharge ordered by . [facility] 18:08 Discharged to home via wheelchair, with family. rb3 18:08 Condition: stable 18:08 Discharge instructions given to patient, Instructed on discharge instructions, follow up and referral plans. Demonstrated understanding of instructions, follow-up care, Prescriptions given X none 18:09 Patient left the ED. rb3 Signatures: Nichole Ruiz FNP-C SPANISH TRANSLATOR-Csnw Osmin Masters PA PA [facility] Mariah Cisse RN RN 5 Murali Owen RN RN bp [place], Ajare [facility] Makeda Fagan, RN RN rb3 Corrections: (The following items were deleted from the chart) 13:52 13:40 Chief complaint: Patient states: "I had hernia surgery on the 4th at [facility] aa5 and last night the vacuum drainage came out and now my colostomy bag is filling up and I emptied it just before coming here and now it's full again". Pt states "My doctor told me to come here because my home health wouldn't been able to fix it" aa5 18:08 18:04 Reassessment: Patient appears in no apparent distress at this time. No changes rb3 from previously documented assessment. rb3
[2020-09-13 12:47] VITALS: TEMP 98.4
[2020-09-13 12:51] VITALS: BP 124/76; O2SAT 97
== END 2020-09-12 18:09 | disposition home or self-care (01) ==
LOC: ER 13:01
DX: Z43.3 Encounter for attention to colostomy (principal)
CPT/HCPCS: 99283

== ENCOUNTER 2021-12-20 20:52 | Emergency (ER) | payer MEDICARE, OTHER ==
[2021-12-20] MEDS ORDERED: EPINEPHrine 1 MG/10 ML SYR IV ONE ×2 (20:53)
--- OUTSIDE RECORDS SUMMARY | 2021-12-20 20:55 | XMS REPORT | Continuity of Care Document ---
:1950 [address] [facility] t Address [address] [place] [address] Care Team Providers Name Role Phone BAUTISTA Attending Clinician Unavailable MD BAUTISTA RHanh Attending Clinician Unavailable REHRER Attending Clinician Unavailable Radha STALLINGS Attending Clinician Unavailable Doctor Unassigned, Name Attending Clinician Unavailable Radha Stallings MD Attending Clinician SALEH Attending Clinician Unavailable BAUTISTA Admitting Clinician Unavailable MD BAUTISTA RHanh Admitting Clinician Unavailable Payers Payer Name Policy Type Policy Number Effective Date Expiration Date S our MEDICARE PART A \T\ [id number] 2014 B 00:00:00 [facility] [id number] 2018 00:00:00 Problems Condition Condition Condition Status Onset Resolution Last Treating Co mments Source Name Details Category Date Date Treatment Clinician Date Other Other Disease Active 2009-09 Univers malaise malaise 05 ity of and and 00:00: [place] fatigue fatigue 00 Medical Branch Supraclavi 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 U nivers cular cular 05 ity of aden[place] Hypothyroi Hypothyroi Disease Active 2009-09 Overview : Univers dism dism 05 ICD10 ity of 00:00: Diagnosis [place] 00 Term 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 Elevated Elevated Diagnosis Active [facility] Allergies, Adverse Reactions, Alerts Allergy Allergy Status Severity Reaction(s) Onset Inactive Treating Comm ents Source Name Type Date Date Clinician FLU VAC DRUG Active Anaphylaxis Univ ers 2012 5-30 ity of (18-64YR 00:00: [place] S)(PF) 00 Medical Branch IODINE DRUG Active Unknown-Cmnt Univ ers INGREDI 5-30 ity of 00:00: [place] 00 Medical Branch Flu Vac Propensi Active Anaphylaxis Un yossi 2012 ty to 5-30 ity of (18-64yr adverse 00:00: [place] s)(Pf) reaction 00 Medical s Branch SHELLFIS DRUG Active Unknown-Cmnt Un yossi H INGREDI 5-30 ity of DERIVED 00:00: [place] 00 Medical Branch Iodine Propensi Active Unknown - Unive rs ty to See comments 5-30 ity of adverse 00:00: [place] reaction 00 Medical s Branch Shellfis Propensi Active Unknown - Uni vers h ty to See comments 5-30 ity of Derived adverse 00:00: [place] reaction 00 Medical s Branch Penicill Propensi Active Swelling 2009-09 Childhood U nivers ins ty to 10-01 , ity of adverse 00:00: informed [place] reaction 00 by Medical s to physician Branch drug to never take again. PENICILL Drug Active SOB 2009-09 Univers INS Class 10-01 ity of 00:00: [place] [facility] Social History Social Habit Start Date Stop Date Quantity Comments Source Sex Assigned At [facility] y of [place] [facility] Alcohol intake 2010-08-01 2010-08-01 [facility] 00:00:00 00:00:00 Medical Branch Smoking Status Start Date Stop Date Source Current every day smoker 2010-08-01 00:00:00 Uni versity of [place] [facility] [place] Medications Ordered Filled Start Stop Current Ordering Indication Dosage Frequency Signature Comments Components Source Medication Medication Date Date Medication? Clinician (SIG) Name Name LEVOTHYROXI 0 Yes 175ug Take 175 U nivers NE SODIUM 4-30 mcg by ity of (LEVOXYL 16:44: mouth [place] ORAL) 18 daily. Medical Branch foLIC acid Yes 1mg Take 1 mg Un yossi 1 mg tablet 4-30 by mouth ity of 16:44: daily. [place] 18 Medical Branch duloxetine Yes Take 60 mg U nivers HCl 4-30 base by ity of (DULOXETINE 16:44: mouth 2 [place] as ORAL) 18 (two) Medical times Branch daily before breakfast and dinner. LEVOTHYROXI Yes 175ug Take 175 U nivers NE SODIUM 4-30 mcg by ity of (LEVOXYL 16:44: mouth [place] ORAL) 18 daily. Medical Branch foLIC acid Yes 1mg Take 1 mg Un yossi 1 mg tablet 4-30 by mouth ity of 16:44: daily. [place] 18 Medical Branch duloxetine Yes Take 60 mg U nivers HCl 4-30 base by ity of (DULOXETINE 16:44: mouth 2 [place] as ORAL) 18 (two) Medical times Branch daily before breakfast and dinner. LEVOTHYROXI Yes Take by Un yossi NE SODIUM 5-30 mouth. ity of (LEVOXYL 20:21: [place] ORAL) 19 Medical Branch MetFORMIN MetFORMIN Yes Do [address] [facility] HCl ER HCl ER Alicia with [facility] Duloxetine Duloxetine Yes Do [address] [facility] HCl HCl [facility] Atorvastati Atorvastati Yes Do [address] [facility] n Calcium n Calcium [place] [facility] Folic Acid Folic Acid Yes Do [address] [facility] [place] [facility] Levothyroxi Levothyroxi Yes Do [address] [facility] ne Sodium ne Sodium [place] in the [facility] an empty l stomach Outpati ent Clinics Procedures Procedure Date / Time Performed Performing Clinician [facility]ly [facility] e EXTERNAL PROVIDER 2020-02-08 05:01:00 Doctor Unassigned, No [facility] RECORDS Name Medical Branch REFERRAL- 2019-10-24 06:01:00 Doctor Unassigned, No [facility] REQUEST/RESPONSE Name Medical Branch Encounters Start End Encounter Admission Attending Care Care Encounter Source Date/Time Date/Time Type Type Clinicians Facility Department ID 2021-04-10 2021-04-10 [id number] [place] 00:00:00 00:00:[address] [facility] [address] 2021-03-13 2021-03-13 [facility] [id number] [place] 00:00:00 00:00:[address] [place] [address] 2021-02-27 2021-02-27 [facility] [id number] [place] 00:00:00 00:00:00 [place] [address] 2021-01-16 2021-01-16 Outpatient BAUTISTA [facility] [id number] [place] 00:00:00 00:00:00 [place] [address] 2020-12-19 2020-12-19 Outpatient BAUTISTA [facility] [id number] [place] 00:00:00 00:00:00 [place] [address] 2020-10-17 2020-10-17 Outpatient BAUTISTA [facility] [id number] [place] 00:00:00 00:00:00 [place] [address] 2020-10-03 2020-10-03 Outpatient BAUTISTA [facility] [id number] [place] 00:00:00 00:00:00 [place] [address] 2020-09-23 2020-09-26 Inpatient BAUTISTA [facility] [id number] [place] 00:00:00 00:00:00 [facility] [address] [facility] 2020-09-14 2020-09-14 Emergency REHRER, [facility] [id number] [place] 00:00:00 00:00:00 JAEL [address] 2020-08-30 2020-09-09 Inpatient BAUTISTA [facility] [id number] [place] 00:00:00 00:00:00 [place] [address] 2020-08-27 2020-08-27 Outpatient BAUTISTA [facility] [id number] [place] 00:00:00 00:00:00 [facility] [address] [facility] 2020-07-09 2020-07-09 Outpatient BAUTISTA [facility] [id number] [place] 00:00:00 00:00:00 [place] [address] 2020-05-31 2020-05-31 Outpatient Janes STALLINGS [facility] [id number] Univers 12:00:00 12:00:00 GAVINO [id number] ity [facility] [place] [facility] 2020-05-31 2020-05-31 Outpatient Janes DILLON [facility] [id number] Univers 12:00:00 12:00:00 GAVINO nielsen [facility] [place] [facility] 2020-02-08 2020-02-08 Rissa SILVER [id number] 00:00:00 00:00:00 Only Unassigned, ALEK [id number] [facility] [id number] 2020-02-08 2020-02-08 Orders Doctor NADEEM [id number] Univers 00:00:00 00:00:00 Only Unassigned, ALEK [id number] ity of [place] [facility] [id number] [place] as [id number] [address] 2020-02-01 2020-02-01 Telephone [facility] [id number] 00:00:00 00:00:00 Gavino Nunes [id number] [place] [id number] Professio [id number] [address] 2020-02-01 2020-02-01 Telephone [facility] [id number] Univers 00:00:00 00:00:00 Gavino Nunes [id number] i [place] [id number] [place] [id number] Me dical [address] 2020-01-31 2020-01-31 Outpatient R THERESE [facility] [id number] Univers 13:00:00 13:00:00 ASTER [facility] 2020-01-26 2020-01-26 [facility] [id number] Univers 14:30:00 14:30:00 GAVINO [id number] [facility] 2020-01-26 2020-01-26 [facility] [id number] Univers 14:30:00 14:30:00 GAVINO [facility] 2019-12-27 2019-12-27 [facility] [id number] [address] 08:00:00 08:00:00 t Specialty/U [facility] - [facility] Clinic Outpati ent Clinics 2019-10-24 2019-10-24 Orders Doctor NADEEM [id number] 00:00:00 00:00:00 Only Unassigned, ALEK [id number] [facility] [id number] [id number] 2019-10-24 2019-10-24 Orders Doctor NADEEM [id number] Univers 00:00:00 00:00:00 Only Unassigned, ALEK [id number] ity of [place] [facility] [id number] [place] as [id number] [place] [address] Branch 2019-09-08 2019-09-08 Outpatient Chet Katz [id number] 14:00:00 14:00:00 t Specialty/U [facility] [facility]es - Specialty rology [facility] /Urology Clinic l Clinic Outpati ent Clinics 2019-08-25 2019-08-25 [place] [facility] [id number] 11:33:00 11:33:00 t Specialty/U [place] [facility] - Specialty rology [facility]Urology Clinic l Clinic Outpati ent Clinics 2019-08-07 2019-08-07 [place] [facility] [id number] 09:00:00 09:00:00 t Specialty/U [place] kes - Specialty rology [facility] Results Test Description Test Time Test Comments Results Result Comments Source SARS-CoV-2 (COVID-19) RNA [Presence] in Respiratory sp ecimen by 2020-09-23 23:32:05 SUZANNE with probe detection Test Item Value Reference Range Interpretation Comme nts SARS-CoV-2 (COVID-19) RNA [Presence] in Respiratory Not detected No t-Detected specimen by SUZANNE with probe detection (test code = 84076-0) SARS-CoV-2 (COVID-19) RNA [Presence] in Respiratory specimen by SUZANNE with probe [id number] 08:17:04 Test Item Value Reference Range Interpretation Comments SARS-CoV-2 (COVID-19) RNA Not detected Not-Detected [Presence] in Respiratory specimen by SUZANNE with probe detection (test code = 73706-0)
--- NOTE | 2021-12-20 22:36 | EDPHYS ---
Physician Documentation [facility] Name: Harshil Perales Age: 71 yrs Sex: Male : 1950 Arrival Date: 12/20/2021 Time: 21:08 Bed 3 Private MD: ED Physician Karel Triana HPI: 12/20 21:17 This 71 yrs old Male presents to ER via Unassigned with complaints of CPR. 7 21:17 Preceding the arrest, the patient was dyspneic. 7 21:17 The arrest occurred at home. Pre-hospital course: The arrest was not witnessed by [facility] others. Bystanders at the scene did not perform CPR. EMS care prior to arrival: initiation of ACLS, peripheral IV, Left tibial IO. intubation orally, with a EOA, oxygen, by BVM to assist ventilations. 100% by ET tube. Time elapsed prior to ACLS is unknown. ACLS has been in progress for 25 minutes. ACLS details: Initial rhythm was asystole. The presenting rhythm is asystole. Airway: Ambu assist ventilation, Medications given by EMS prior to arrival - Epinephrine IV x 2 doses, Response to therapy: continued arrest. Unable to obtain HPI due to unresponsive. According to EMS, they received a call patient difficulty breathing. Upon arrival at scene patient was unresponsive and noted to be in asystole. ACLS protocol was initiated, including intubation, left tibial intraosseous line placement.. Historical: - Allergies: 21:15 Iodinated Contrast Media - IV Dye; lp1 21:15 Iodine; lp1 21:15 PENICILLINS; lp1 - PMHx: 21:15 Herniated disc; Hyperlipidemia; Hypothyroidism; lp1 - PSHx: 21:15 Colostomy; hernia repair; R hand sx; lp1 ROS: 21:17 Unable to obtain ROS due to Unresponsive. 7 Exam: 21:17 Head/Face: Normocephalic, atraumatic. 7 21:17 Chest/axilla: Normal chest wall appearance and motion. Nontender with no deformity. No lesions are appreciated. 21:17 Abdomen/GI: Soft, non-tender, with normal bowel sounds. No distension or tympany. No guarding or rebound. No evidence of tenderness throughout. Back: No spinal tenderness. No costovertebral tenderness. Full range of motion. Skin: Warm, dry with normal turgor. Normal color with no rashes, no lesions, and no evidence of cellulitis. 21:17 Constitutional: The patient appears Unresponsive 21:17 Eyes: Periorbital structures: appear normal, Pupils: are fixed and dilated. 21:17 ENT: Endotracheal tube in place. 21:17 Neck: External neck: is normal. 21:17 Cardiovascular: Rate: actual rate is 0 bpm, Rhythm: asystole, Pulses: not palpable, Heart sounds: Absent, Edema: is not appreciated, JVD: is not appreciated. 21:17 Respiratory: Respirations: Absent, Respiratory rate: 0 No spontaneous respirations. 21:17 Musculoskeletal/extremity: No spontaneous movement. 21:17 Neuro: No response to any stimuli. Vital Signs: 20:50 Pulse Ox 98% on 100% BVM; lp1 21:19 Weight 113.4 kg; Height 6 ft. 1 in. (185.42 cm); lp1 21:19 Body Mass Index 32.98 (113.40 kg, 185.42 cm) [facility] Procedures: 22:17 CPR: See CPR flow sheet. Initial patient assessment: unresponsive, pupils fixed \T\ mh7 dilated, no respiratory effort, pulses absent w/ compressions, The presenting cardiac rhythm is asystole. respirations assisted with BVM, Compressions: began prior to arrival. Meds given: Epinephrine X 2, despite ED evaluation and treatment, the patient . CPR was stopped at 21:00. MDM: 22:17 Differential diagnosis: arrythmia, cardiac arrest, respiratory arrest, renal failure. [facility] Data reviewed: vital signs, nurses notes, EMS record. 22:17 Response to treatment: There is no appreciated change of the patient's symptoms at this [facility] time. 22:17 ED course: Upon arrival to the ED patient was in asystole without any signs of life. [facility] CPR was continued with epinephrine total of 2 mg given via IO line. There was no return of spontaneous circulation. Patient remained without signs of life including no spontaneous heartbeat/pulse, no spontaneous respirations, no response to any stimuli, and fixed and dilated pupils. CPR discontinued and patient pronounced at 2100. Nursing staff to discuss with [facility]. Will discuss with family upon arrival to ED.. 22:35 Patient medically screened. [facility] Administered Medications: No medications were administered Disposition: 22:17 . [facility] Disposition Summary: 12/20/21 22:35 Patient Location: [facility] Pronouncing Physician: Karel Triana Time of : 21:00 12/20/2021 [facility] Diagnosis - Cardiac arrest, cause unspecified [facility] - Asystole [facility] Signatures: Ivana Flores RN RN lp1 Karel Triana MD MD [facility]
--- NOTE | 2021-12-20 22:36 | ER ---
Nurse's Notes [facility] Name: Harshil Perales Age: 71 yrs Sex: Male : 1950 Arrival Date: 12/20/2021 Time: 21:08 Bed 3 Private MD: Diagnosis: Cardiac arrest, cause unspecified;Asystole Presentation: 12/20 20:48 Acuity: BYRON 1 lp1 20:50 Chief complaint: EMS states: Called for patient with difficulty breathing, patient lp1 became unresponsive, witnessed by EMS, asystole, CPR began by EMS at 2024; EMS reports x1 shock delivered for rhythm of Vfib, x2 Epi given enroute. 20:50 Care prior to arrival: Oral intubation, CPR via thumper performed by EMS and is still lp1 in progress IO placed to left Tib-Fib. Compressions began at 20:25. 20:50 Method Of Arrival: EMS: [facility] lp1 21:00 Onset of symptoms was December 20, 2021. lp1 Historical: - Allergies: 21:15 Iodinated Contrast Media - IV Dye; lp1 21:15 Iodine; lp1 21:15 PENICILLINS; lp1 - PMHx: 21:15 Herniated disc; Hyperlipidemia; Hypothyroidism; lp1 - PSHx: 21:15 Colostomy; hernia repair; R hand sx; lp1 Assessment: 20:48 CPR assessment: unresponsive, pupils fixed \T\ dilated, no respiratory effort, intubated, lp1 Ambu ventilation, pale. 20:48 Cardiac rhythm is asystole. lp1 20:50 Cardiac rhythm is asystole. lp1 20:53 Cardiac rhythm is asystole. lp1 20:57 Cardiac rhythm is asystole. lp1 20:59 Cardiac rhythm is asystole. lp1 21:00 General: Appears obese, Behavior is unresponsive. Cardiovascular: Rhythm is asystole. lp1 Respiratory: Airway via oral intubation Trachea midline. Derm: Skin is intact, Skin is clammy, Skin is pale, Skin temperature is cool. 21:00 CPR assessment: pupils fixed \T\ dilated. lp1 21:29 Reassessment: this RN called and spoke with Brianna with [employer] for qualification kd3 for organ donation. 22:01 Reassessment: called pt's next of kin Lizy Perales spouse no one answered the phone bb left a message for her to call us back. 22:16 Reassessment: spoke to pt's spouse Lizy Perales on pt's expiration she will notify us denis of which home she will be using. 12/21 00:01 Reassessment: [facility] at bedside. lp1 Vital Signs: 12/20 20:50 Pulse Ox 98% on 100% BVM; lp1 21:19 Weight 113.4 kg; Height 6 ft. 1 in. (185.42 cm); lp1 21:19 Body Mass Index 32.98 (113.40 kg, 185.42 cm) lp1 ED Course: 20:48 Patient has correct armband on for positive identification. monitoring tech on. Pulse lp1 ox on. NIBP on. 21:00 Arm band placed on right wrist. lp1 21:08 Patient arrived in ED. lp1 21:10 Karel Triana MD is Attending Physician. [facility] 21:19 Ivana Flores, RN is Primary Nurse. lp1 21:19 Triage completed. lp1 21:35 Police Department notified of PT , PD advised that they would coordinate an ds4 officer presence at room as well as coordinate juvenile court judge notification of . 22:35 Karel Triana MD is Pronouncing Provider. [facility] 22:45 of PT called and advised that [facility], and had ds4 notified them. Administered Medications: No medications were administered Outcome: 21:00 Outcome Patient lp1 21:00 Patient : Time of 21:00 Pronounced by Karel Triana MD lp1 :00 Condition: 12/21 00:03 Patient left the ED. lp1 Signatures: Lisa Wheeler RN RN bb Ivana Flores RN RN 1 Neto Carnes ds4 Karel Triana MD MD [facility] Niki Johnston RN RN kd3 Corrections: (The following items were deleted from the chart) 12/20 22:22 22:19 Police Department notified of PT , PD advised that they would coordinate an ds4 officer presence at room as well as coordinate juvenile court judge notification of . ds4
== END 2021-12-21 00:03 ==
LOC: ER 20:52
DX: I46.9 Cardiac arrest, cause unspecified (principal); Z88.0 Allergy status to penicillin; Z91.09 Other allergy status, other than to drugs and biological substances; E03.9 Hypothyroidism, unspecified; E78.5 Hyperlipidemia, unspecified
CPT/HCPCS: 92950; 99285; J0171 ×2